=== PATIENT | female | born 1990 | race Two or more races ===

== ENCOUNTER 2017-05-02 23:40 | Emergency (ER) | payer BC ==
[2017-05-02 23:52] VITALS: TEMP 97.7; BMI 26.6
[2017-05-03] MEDS ORDERED: ALBUTEROL SO4 2.5/IPRATROPIUM 0.5 INH SOL 3 ML VIAL.NEB. NEB ONE ×3 (00:04→00:55)
--- NOTE | 2017-05-03 00:27 | PDOC ---
History of Present Illness - General Chief Complaint: Chest Pain Stated Complaint: S.O.B / CHEST PAIN Time Seen by Provider: 05/03/17 00:04 - History of Present Illness Initial Comments: 05/03/17 00:24 CHIEF COMPLAINT: chest tightness, SOB HISTORY OF PRESENT ILLNESS: 26 yo F presents to ED with shortness of breath and chest tightness since this evening. Patient states that she was eating when she the symptoms suddenly started. She reports congestion and runny nose since this evening. She denies any fever, chills, vomiting, diarrhea. She denies any recent travel, prolonged periods of sitting, or any hormonal therapy. She reports this has happened three times before and just recently saw her doctor at [facility] and had a "pulmonary function test done last week and I was waiting for the results." PAST MEDICAL HISTORY: Denies past medical history FAMILY HISTORY: Denies SOCIAL HISTORY: Denies tobacco, alcohol, illicit drug use. SURGICAL HISTORY: Denies ALLERGIES: amoxicillin REVIEW OF SYSTEMS General/Constitutional: Denies fever or chills. Denies weakness. HEENT: Denies change in vision. Denies ear pain or discharge. Denies sore throat. Cardiovascular: chest tightness, shortness of breath Respiratory: Denies cough, wheezing, or hemoptysis. Gastrointestinal: Denies nausea, vomiting, diarrhea or constipation. Denies rectal bleeding. Genitourinary: Denies dysuria, frequency, or change in urination. Musculoskeletal: Denies joint or muscle swelling or pain. Denies neck or back pain. Skin and breasts: Denies rash or easy bruising. Neurologic: Denies headache, vertigo, loss of consciousness, or loss of sensation. PHYSICAL EXAM General Appearance: Well-appearing, appropriately dressed. No apparent distress. HEENT: EOMI, PERRLA. No photophobia, scleral icterus. Neck: Supple. Trachea midline. No tenderness, rigidity, carotid bruit, stridor , lymphadenopathy, or thyromegaly. Respiratory/Chest: Wheezing to LLL. No shortness of breath, chest tenderness, respiratory distress, accessory muscle use. No crackles, rales, rhonchi, stridor , wheezing, dullness Cardiovascular: RRR. S1, S2. Vascular Pulses: Dorsalis-Pedis (R): 2+, Dorsalis-Pedis (L): 2+ Gastrointestinal/Abdominal: Normal bowel sounds. Abdomen soft, non-distended. No tenderness or rebound tenderness. No organomegaly, pulsatile mass, guarding , hernia, hepatomegaly, splenomegaly. Musculoskeletal/Extremities: Normal inspection. FROM of all extremities, normal capillary refill. Pelvis Stable. No CVA tenderness. No tenderness to extremities, pedal edema, swelling, erythema or deformity. Integumentary: Appropriate color, dry, warm. 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 Fully oriented, alert. Appropriate mood/affect. Motor strength 5/5. No appreciable EOM palsy, facial droop or sensory deficit. Past History - Past Medical History Allergies/Adverse Reactions: Allergies Allergy/AdvReac Type Severity Reaction Status Date / Time amoxicillin Allergy Rash Verified 04/20/16 19:32 Home Medications: Ambulatory Orders Albuterol Sulfate Inhaler - [Ventolin HFA Inhaler -] 1 - 2 inh PO Q4H PRN #1 inhaler 05/03/17 COPD: No - Surgical History Abdominal Surgery: Yes - Immunization History Immunization Up to Date: Yes - Suicide/Smoking/Psychosocial Hx Smoking History: Never smoked Have you smoked in the past 12 months: No Information on smoking cessation initiated: No Hx Alcohol Use: No Drug/Substance Use Hx: No Substance Use Type: None *Physical Exam - Vital Signs Last Vital Signs Temp Pulse Resp BP Pulse Ox 97.7 F 96 H 18 121/78 100 05/02/17 23:50 05/02/17 23:50 05/02/17 23:50 05/02/17 23:50 05/02/17 23:50 ED Treatment Course - RADIOLOGY Radiology Studies Ordered: Category Date Time Status CHEST PA & LAT [RAD] Stat Radiology 05/03/17 00:18 Ordered - Medications Given in the ED: ED Medications Discontinued Medications Generic Name Dose Route Start Last Admin Trade Name Freq PRN Reason Stop Dose Admin Albuterol/Ipratropium 1 amp 05/03/17 00:04 05/03/17 00:09 Duoneb - NEB 05/03/17 00:05 1 amp ONCE ONE Administration Medical Decision Making - Medical Decision Making 05/03/17 00:55 26 yo F presents to ED with shortness of breath and chest tightness since this evening. -duoneb -ekg, cxr *DC/Admit/Observation/Transfer Diagnosis at time of Disposition: Asthma attack - Discharge Dispostion Disposition: HOME Condition at time of disposition: Stable Admit: No - Prescriptions Prescriptions: Albuterol Sulfate Inhaler - [Ventolin HFA Inhaler -] 1 - 2 inh PO Q4H PRN #1 inhaler PRN Reason: Short Of Breath/Wheezing - Referrals - Patient Instructions Printed Discharge Instructions: DI for Asthma -- Adult Additional Instructions: Please use medications as prescribed. Follow up with your primary care doctor by the end of next week. If you develop any fever, chills, vomiting, diarrhea, or any new or worsening symptoms, please return to the ER. - Post Discharge Activity
--- NOTE | 2017-05-03 00:52 | PDOC ---
*Physical Exam - Vital Signs Last Vital Signs Temp Pulse Resp BP Pulse Ox 97.7 F 96 H 18 121/78 100 05/02/17 23:50 05/02/17 23:50 05/02/17 23:50 05/02/17 23:50 05/02/17 23:50 ED Treatment Course - ADDITIONAL ORDERS Additional order review: Laboratory Results 05/03/17 00:27 Urine HCG, Qual Negative - Medications Given in the ED: ED Medications Discontinued Medications Generic Name Dose Route Start Last Admin Trade Name Freq PRN Reason Stop Dose Admin Albuterol/Ipratropium 1 amp 05/03/17 00:04 05/03/17 00:09 Duoneb - NEB 05/03/17 00:05 1 amp ONCE ONE Administration Medical Decision Making - Medical Decision Making 05/03/17 00:52 agree with care from BEBE Martines *DC/Admit/Observation/Transfer Diagnosis at time of Disposition: Asthma attack - Discharge Dispostion Disposition: HOME Condition at time of disposition: Stable - Prescriptions Prescriptions: Albuterol Sulfate Inhaler - [Ventolin HFA Inhaler -] 1 - 2 inh PO Q4H PRN #1 inhaler PRN Reason: Short Of Breath/Wheezing - Referrals - Patient Instructions Printed Discharge Instructions: DI for Asthma -- Adult Additional Instructions: Please use medications as prescribed. Follow up with your primary care doctor by the end of next week. If you develop any fever, chills, vomiting, diarrhea, or any new or worsening symptoms, please return to the ER. - Post Discharge Activity
[2017-05-03] MEDS ORDERED: DEXAMETHASONE LIQUID 0.5 MG/5 ML 240 ML BULK BOTTLE PO ONE (02:52)
[2017-05-03] MEDS ORDERED: DEXAMETHASONE SOD PHOSPHATE 10 MG/1 ML VIAL ONE (03:07)
[2017-05-03 03:09] VITALS: BP 127/73; PULSE 75
--- NOTE | 2017-05-03 16:30 | EKG ---
Test Reason : Blood Pressure : / mmHG Vent. Rate : 085 BPM Atrial Rate : 085 BPM P-R Int : 166 ms QRS Dur : 076 ms QT Int : 358 ms P-R-T Axes : 083 072 058 degrees QTc Int : 426 ms NORMAL SINUS RHYTHM WITH SINUS ARRHYTHMIA NORMAL ECG WHEN COMPARED WITH ECG OF 06-DEC-2008 22:59, NO SIGNIFICANT CHANGE WAS FOUND Confirmed by HILTON DE LUNA MD ([id number]) on 05/03/2017 4:30:14 PM Referred By: Confirmed By:HILTON DE LUNA MD
== END 2017-05-03 03:08 | disposition home or self-care (01) ==
LOC: JER 23:40
PROC: 3E0F7GC Introduction of Other Therapeutic Substance into Respiratory Tract, Via Natural or Artificial Opening (ICD-10-PCS; principal; 2017-05-02)
PROC: 3E0F7GC Introduction of Other Therapeutic Substance into Respiratory Tract, Via Natural or Artificial Opening (ICD-10-PCS; 2017-05-02)
DX: J45.901 Unspecified asthma with (acute) exacerbation (principal)
CPT/HCPCS: 71020-TC; 84703; 87804; 93005; 93010; 99282-25

== ENCOUNTER 2018-01-30 14:32 | Emergency (ER) | payer BC ==
[2018-01-30 14:49] VITALS: BP 114/74; PULSE 81; TEMP 98.5; BMI 28.8
[2018-01-30] MEDS ORDERED: IBUPROFEN 400 MG TABLET (FP) PO ONE ×2 (14:57→14:59)
[2018-01-30] MEDS ORDERED: PSEUDOEPHEDRINE HCL 30 MG TABLET ONE (14:58)
[2018-01-30] MEDS ORDERED: LORATADINE 10 MG TABLET ONE (14:58)
[2018-01-30] MEDS ORDERED: LORATADINE 10 MG TABLET PO ONE (14:58)
[2018-01-30] MEDS ORDERED: PSEUDOEPHEDRINE HCL 30 MG TABLET PO SCH (15:00)
--- NOTE | 2018-01-30 15:03 | PDOC ---
History of Present Illness - History of Present Illness Initial Comments: Patient is a 27 year old female with a PMHx of Hirschsprung's disease who presents to the ED with a right-sided headache since this morning. Patient states that last week she went to urgent care for her right ear pain and was told that it was inflamed and was given a course of antibiotics. She states that this morning she woke up with a right-sided pressure-like headache which radiated to her right ear and neck. She also notes some clear discharge from her right nostril this morning after taking the antibiotic. She states that she has about 5 days left of her antibiotic course and takes 2/day 12 hours apart. She reports that on Sunday when she began her antibiotics she vomited 1x. Patient denies h/o migraines. Social Hx: occasional EtOH use. Allergies: amoxicillin <Lula Rubio - Last Filed: 01/30/18 15:14> - History of Present Illness Initial Comments: 01/30/18 15:25 Physical exam: Alert and oriented well-developed well-nourished no acute distress cheerful and cooperative Afebrile, vital signs normal PERRLA 4 mm, fundi benign with sharp disc margins and good central venous pulsations. No hemorrhages or exudates. EOMs full without diplopia. Visual askew intact to confrontation. Nasal congestion is present on the right, with watery nasal discharge. Ears and throat are clear without any suggestion of erythema or other sign of infection Neck supple without bruit mass or nodes Chest clear CV regular without murmur rub or gallop Abdomen benign Neurological intact Skin clear, no rash, adequate turgor and wet mucous membranes Impression: Sinus congestion, 7 day course of antibiotics complete, no purulent discharge, fever, or other sign of ongoing infection. Residual congestion is most likely this was before the headache Plan: Antihistamine and decongestant, Motrin, rest, and recheck if symptoms persist or worsen. Fully ambulatory and in no distress upon discharge. <Kareem Ramirez - Last Filed: 01/30/18 15:27> - General Chief Complaint: Headache Stated Complaint: HEADACHE Time Seen by Provider: 01/30/18 14:36 Past History <Lula Rubio - Last Filed: 01/30/18 15:14> - Past Medical History COPD: No GI Disorders: Yes (HISPUNG DISEASE) - Surgical History Abdominal Surgery: Yes ( CHILD) - Immunization History Immunization Up to Date: Yes - Suicide/Smoking/Psychosocial Hx Smoking History: Never smoked Have you smoked in the past 12 months: No Information on smoking cessation initiated: No Hx Alcohol Use: Yes (OCCASSIONAL) Drug/Substance Use Hx: No Substance Use Type: Alcohol <Kareem Ramirez - Last Filed: 01/30/18 15:27> - Past Medical History Allergies/Adverse Reactions: Allergies Allergy/AdvReac Type Severity Reaction Status Date / Time amoxicillin Allergy Rash Verified 01/30/18 14:34 Home Medications: Ambulatory Orders Fexofenadine/Pseudoephedrine [Libby-D 24 Hour Tablet] 1 tab PO DAILY #15 tab.er.24h 01/30/18 Ibuprofen 600 mg PO TID PRN #20 tablet 01/30/18 Review of Systems - Review of Systems Comments:: CONSTITUTIONAL: Absent: fever, chills, diaphoresis, generalized weakness, malaise, loss of appetite HEENT: Present: rhinorrhea, nasal congestion, right ear pain Absent:throat pain, throat swelling, difficulty swallowing, mouth swelling, eye pain, visual changes CARDIOVASCULAR: Absent: chest pain, syncope, palpitations, irregular heart rate, lightheadedness , peripheral edema RESPIRATORY: Absent: cough, shortness of breath, dyspnea with exertion, orthopnea, wheezing, stridor, hemoptysis GASTROINTESTINAL: Absent: abdominal pain, abdominal distension, nausea, vomiting, diarrhea, constipation, melena, hematochezia GENITOURINARY: Absent: dysuria, frequency, urgency, hesitancy, hematuria, flank pain, genital pain MUSCULOSKELETAL: Absent: myalgia, arthralgia, joint swelling SKIN: Absent: rash, itching, pallor HEMATOLOGIC/IMMUNOLOGIC: Absent: easy bleeding, easy bruising, lymphadenopathy, frequent infections ENDOCRINE: Absent: unexplained weight gain, unexplained weight loss, heat intolerance, cold intolerance NEUROLOGIC: Present: right sided headache Absent: focal weakness or paresthesias, dizziness, unsteady gait, seizure, mental status changes, bladder or bowel incontinence PSYCHIATRIC: Absent: anxiety, depression, suicidal or homicidal ideation, hallucinations. <Lula Rubio - Last Filed: 01/30/18 15:14> *Physical Exam - Vital Signs Last Vital Signs Temp Pulse Resp BP Pulse Ox 98.5 F 81 18 114/74 98 01/30/18 14:34 01/30/18 14:34 01/30/18 14:34 01/30/18 14:34 01/30/18 14:34 <Lula Rubio - Last Filed: 01/30/18 15:14> - Vital Signs Last Vital Signs Temp Pulse Resp BP Pulse Ox 98.5 F 81 18 114/74 98 01/30/18 14:34 01/30/18 14:34 01/30/18 14:34 01/30/18 14:34 01/30/18 14:34 <Kareem Ramirez - Last Filed: 01/30/18 15:27> ED Treatment Course - Medications Given in the ED: ED Medications Discontinued Medications Generic Name Dose Route Start Last Admin Trade Name Freq PRN Reason Stop Dose Admin Ibuprofen 400 mg 01/30/18 14:59 01/30/18 15:00 Motrin - PO 01/30/18 15:00 400 mg ONCE ONE Administration Loratadine 10 mg 01/30/18 14:58 01/30/18 15:00 Claritin - PO 01/30/18 14:59 10 mg ONCE ONE Administration <Lula Rubio - Last Filed: 01/30/18 15:14> *DC/Admit/Observation/Transfer - Attestations Scribe Attestion: 01/30/18 15:18 Documentation prepared by Lula Rubio, acting as medical imaging specialist for Kareem Moctezuma MD. <Lula Rubio - Last Filed: 01/30/18 15:14> - Discharge Dispostion Decision to Admit order: No <Kareem Ramirez - Last Filed: 01/30/18 15:27> Diagnosis at time of Disposition: Viral upper respiratory illness - Discharge Dispostion Disposition: HOME Condition at time of disposition: Stable - Prescriptions Prescriptions: Fexofenadine/Pseudoephedrine [Libby-D 24 Hour Tablet] 1 tab PO DAILY #15 tab.er.24h Ibuprofen 600 mg PO TID PRN #20 tablet PRN Reason: Headache - Patient Instructions Printed Discharge Instructions: Sinus Headache Additional Instructions: Rest, fluids, medication as directed. Avoid excessive visual stimulation such as bright lights or television/computer/phone screens. Return to ER if symptoms worsen, otherwise recheck PCP. 5 days. Discontinue antibiotics. - Post Discharge Activity Forms/Work/School Notes: Back to Work
== END 2018-01-30 15:19 | disposition home or self-care (01) ==
LOC: FER 14:32
DX: J06.9 Acute upper respiratory infection, unspecified (principal)
CPT/HCPCS: 99281-25

== ENCOUNTER 2018-08-14 08:49 | Emergency (ER) | payer BC, OTHER ==
[2018-08-14 09:09] VITALS: BP 118/75; PULSE 66; TEMP 98.3; BMI 27.4
[2018-08-14] MEDS ORDERED: ONDANSETRON *ODT* 4 MG TABLET SL ONE (09:11)
--- NOTE | 2018-08-14 09:11 | PDOC ---
History of Present Illness - General Chief Complaint: Headache Stated Complaint: varghese lara dneck pain Time Seen by Provider: 08/14/18 08:56 - History of Present Illness Initial Comments: 08/14/18 09:13 Chief complaint: Headache History of present illness: Patient complains of headache since 6 AM this morning. Took 1 Excedrin without relief. The headache is bilateral, radiating from both sternomastoid muscles in the neck. There is photophobia, nausea, and there was one episode of vomiting. Review of systems: Denies fever/chills, URI symptoms, nasal congestion, sore throat, cough, chest pain, shortness of breath, abdominal pain, visual or focal neurologic symptoms, unsteadiness of gait. Denies urinary tract symptoms, vaginal bleeding or discharge. LMP approximately 4 weeks ago, due for menses now. Remainder of systems reviewed and negative Past medical history: Hirschsprung's disease as an infant, surgery at that time , no further problems. Denies frequent headaches or migraines, although occasional headache is experienced in usually treated with [id number] analgesics. 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 Denies drugs or alcohol or tobacco. Fully ambulatory, no disabilities. Denies any awareness of any unusual stress or anxiety or depression. Family history: Reviewed and noncontributory including early coronary artery disease, metabolic disease including diabetes, neurological diseases, and cancer Physical exam: Alert and oriented well-developed well-nourished mild distress due to headache. However relatively cheerful and cooperative Afebrile, vital signs normal Head atraumatic. PERRLA 3 mm, fundi benign with sharp disc margins and good central venous pulsations, ENT clear Neck supple without bruit mass or nodes. No point tenderness or deformity of the cervical spine Chest clear with full breath sounds bilaterally CV regular without murmur rub or gallop pulses full and symmetric no JVD or edema no bruits Abdomen nondistended. Bowel sounds normal. Soft without mass tenderness organomegaly Extremities no CCE Skin clear, no rash, adequate turgor and wet mucous membranes Neurological C2 to 12 intact. Strength full and symmetric. No focal sensory or motor deficits. Cerebellar function intact. Gait stable and unimpaired Impression: Tension-type headache, no clear etiology other than possibly related to impending menses. No sign of acute neurological disease Plan: Antiemetic and analgesic. Observation, further evaluation and treatment depending on response to therapy. Past History - Past Medical History Allergies/Adverse Reactions: Allergies Allergy/AdvReac Type Severity Reaction Status Date / Time amoxicillin Allergy Rash Verified 08/14/18 08:51 Home Medications: Ambulatory Orders Diclofenac Potassium 50 mg PO TID PRN #20 tablet 08/14/18 COPD: No GI Disorders: Yes (HISPUNG DISEASE) - Surgical History Abdominal Surgery: Yes ( CHILD,colostomy and closure) - Immunization History Immunization Up to Date: Yes - Suicide/Smoking/Psychosocial Hx Smoking History: Never smoked Have you smoked in the past 12 months: No Hx Alcohol Use: No Drug/Substance Use Hx: No Substance Use Type: Alcohol *Physical Exam - Vital Signs Last Vital Signs Temp Pulse Resp BP Pulse Ox 98.3 F 66 18 118/75 98 08/14/18 08:50 08/14/18 08:50 08/14/18 08:50 08/14/18 08:50 08/14/18 08:50 Medical Decision Making - Medical Decision Making 08/14/18 10:39 Headache is almost completely resolved. No photophobia, nausea, or vomiting. Instructed to rest for the remainder of the day, return to ER if symptoms worse , otherwise follow-up with primary physician. Continue analgesics as needed. *DC/Admit/Observation/Transfer Diagnosis at time of Disposition: Headache Qualifiers: Headache type: tension-type Headache chronicity pattern: acute headache - Discharge Dispostion Disposition: HOME Condition at time of disposition: Improved Decision to Admit order: No - Referrals - Patient Instructions Printed Discharge Instructions: DI for Headache Additional Instructions: Rest, medication as needed. If symptoms worse return to emergency room for further evaluation. Otherwise follow-up primary physician. - Post Discharge Activity Forms/Work/School Notes: Back to Work
[2018-08-14] MEDS ORDERED: IBUPROFEN 400 MG TABLET (FP) PO ONE ×2 (09:12→09:18)
[2018-08-14] MEDS ORDERED: ONDANSETRON *ODT* 4 MG TABLET ONE (09:18)
[2018-08-14] MEDS ORDERED: KETOROLAC TROMETHAMINE 60 MG/2 ML VIAL IM ONE (09:30)
[2018-08-14] MEDS ORDERED: KETOROLAC TROMETHAMINE 60 MG/2 ML VIAL ONE (09:36)
== END 2018-08-14 10:48 | disposition home or self-care (01) ==
LOC: FER 08:49
PROC: 3E0333Z Introduction of Anti-inflammatory into Peripheral Vein, Percutaneous Approach (ICD-10-PCS; principal; 2018-08-14)
DX: G44.209 Tension-type headache, unspecified, not intractable (principal); Q43.1 Hirschsprung's disease
CPT/HCPCS: 96372; 99282-25; Q0162

== ENCOUNTER 2019-05-16 19:22 | Emergency (ER) | payer OTHER ==
[2019-05-16 19:29] VITALS: BP 119/66; PULSE 81; TEMP 97.9; BMI 27.4
[2019-05-16] MEDS ORDERED: LIDOCAINE VISCOUS 2% ORAL/TOP 20 ML UNIT-DOSE CUP MM ONE (19:54)
[2019-05-16] MEDS ORDERED: FAMOTIDINE 20 MG TABLET PO ONE (19:54)
[2019-05-16] MEDS ORDERED: MAG HYDROX/AL HYDROX/SIMETH 30 ML UNIT-DOSE CUP PO ONE (19:54)
[2019-05-16] MEDS ORDERED: FAMOTIDINE 20 MG TABLET ONE (19:56)
[2019-05-16] MEDS ORDERED: MAG HYDROX/AL HYDROX/SIMETH 30 ML UNIT-DOSE CUP ONE (19:56)
[2019-05-16] MEDS ORDERED: LIDOCAINE VISCOUS 2% ORAL/TOP 20 ML UNIT-DOSE CUP ONE (19:57)
--- NOTE | 2019-05-16 20:55 | PDOC ---
Documentation entered by Marissa Andrew SCRIBE, acting as scribe for Maryan Chapa MD. Maryan Chapa MD: This documentation has been prepared by the Kamran mayo Adrianna, SCRIBE, under my direction and personally reviewed by me in its entirety. I confirm that the documentation accurately reflects all work, treatment, procedures, and medical decision making performed by me. History of Present Illness - General Chief Complaint: Pain, Acute Stated Complaint: N/V/ABD PAIN - History of Present Illness Initial Comments: 28 Y F, PMH of Hirschsprung disease, presents with constipation, nausea, and abdominal pain for 2 weeks. She notes she has been constipated for the past 2 weeks. Patient took OTC laxative and Pepto-bismol, which induced black diarrhea. LBM was 2 days ago, but has been able to pass gas and burp. She endorses associated nausea, and burning epigastric pain. She notes her abdomen feels bloated and hard. Patient had one episode of spitting up this morning, but has tolerated food since then. Her LMP was abnormal, 3 weeks late, and she notes she is due this week. Denies any fever or chills. Allergies: Amoxicillin Surgical History: Colostomy bag as a child Social History: Social EtOH use. Denies tobacco or illicit drug use Past History - Past Medical History Allergies/Adverse Reactions: Allergies Allergy/AdvReac Type Severity Reaction Status Date / Time amoxicillin Allergy Rash Verified 08/14/18 08:51 Home Medications: Ambulatory Orders NK [No Known Home Medication] 05/16/19 COPD: No GI Disorders: Yes (HIRSCHPRUNG DISEASE) - Surgical History Abdominal Surgery: Yes ( CHILD,colostomy and closure) - Immunization History Immunization Up to Date: Yes - Psycho Social/Smoking Cessation Hx Smoking History: Never smoked Have you smoked in the past 12 months: No Hx Alcohol Use: No Drug/Substance Use Hx: No Substance Use Type: Alcohol Review of Systems - Review of Systems Comments:: GENERAL/CONSTITUTIONAL: No fever or chills. No weakness. HEAD, EYES, EARS, NOSE AND THROAT: No change in vision. No ear pain or discharge. No sore throat. CARDIOVASCULAR: No chest pain or shortness of breath. RESPIRATORY: No cough, wheezing, or hemoptysis. GASTROINTESTINAL: +Constipation. +Diarrhea after taking laxative and pepto. + Nausea. +1 episode of spitting up. +Burning epigastric pain. GENITOURINARY: +Abnormal menstrual cycle. No dysuria, frequency, or change in urination. MUSCULOSKELETAL: No joint or muscle swelling or pain. No neck or back pain. SKIN: No rash NEUROLOGIC: No headache, vertigo, loss of consciousness, or change in strength/ sensation. ENDOCRINE: No increased thirst. No abnormal weight change. HEMATOLOGIC/LYMPHATIC: No anemia, easy bleeding, or history of blood clots. ALLERGIC/IMMUNOLOGIC: No hives or skin allergy. *Physical Exam - Vital Signs Last Vital Signs Temp Pulse Resp BP Pulse Ox 97.9 F 81 16 119/66 100 05/16/19 19:26 05/16/19 19:26 05/16/19 19:26 05/16/19 19:26 05/16/19 19:26 - Physical Exam 05/16/19 20:50 awake alert lungs clear bilat heart rrr no mrg abd soft nt nd old surgical scar evident midline horizontal above umbilicas. colostomy scar. no pal phernia. no rebound no guarding. skin warm and dry. retal no stool in vault, small fissure noted 12oclock postion. 05/16/19 20:53 ED Treatment Course - ADDITIONAL ORDERS Additional order review: Laboratory Results 05/16/19 05/16/19 20:00 20:00 Urine HCG, Qual Negative Stool Occult Blood Negative - Medications Given in the ED: ED Medications Discontinued Medications Generic Name Dose Route Start Last Admin Trade Name Freq PRN Reason Stop Dose Admin Al Hydroxide/Mg Hydroxide 30 ml 05/16/19 19:54 05/16/19 19:57 Mylanta Oral Suspension - PO 05/16/19 19:55 30 ml ONCE ONE Administration Famotidine 20 mg 05/16/19 19:54 05/16/19 19:57 Pepcid - PO 05/16/19 19:55 20 mg ONCE ONE Administration Lidocaine HCl 10 ml 05/16/19 19:54 05/16/19 19:58 Xylocaine 2% Viscous Oral - MM 05/16/19 19:55 10 ml ONCE ONE Administration Medical Decision Making - Medical Decision Making 05/16/19 20:51 28 yo F with h/o prior hirschrpungs s/p resection , colostomy and reversal as a child, hrere c/o constipation. pt stats now having loose stool after taking laxitive. black stool following a pepto. does have a GI whom she saw one year ago. no f/c c/o bloating feeling. no ther complaitns. lpassing mechelle, last bm 2 days ago. no f/c burning epigastri pain radiating to chest worse at night. abd exam benign nontender. differential gerd, contstipation. no current sxs of obstruction abd exam nontender. will given gerd medication, recommend daily miralax, stool occult. pt to follow up with GI. Discharge - Discharge Information Problems reviewed: Yes Clinical Impression/Diagnosis: Constipation, GERD (gastroesophageal reflux disease) Condition: Stable Disposition: HOME - Admission No - Follow up/Referral - Patient Discharge Instructions Patient Printed Discharge Instructions: Heartburn -- Overview, Constipation Additional Instructions: you shoudl follow up with a special programs director. call DR Hernandes to schedule appointemtn. you should also take daily miralax one packet. mix with water take daily to help wtih constipation. drink plenty of fluids. for your reflux you can take pepcid daily. these medications are available over the counter. return for any persistant vomiting or any concerns. - Post Discharge Activity
== END 2019-05-16 20:59 | disposition home or self-care (01) ==
LOC: FER 19:22
DX: K59.00 Constipation, unspecified (principal); K21.9 Gastro-esophageal reflux disease without esophagitis; Q43.1 Hirschsprung's disease; Z88.1 Allergy status to other antibiotic agents
CPT/HCPCS: 36415; 82272; 84703; 99282-25

== ENCOUNTER 2019-06-24 00:53 | Emergency (ER) | payer OTHER ==
--- NOTE | 2019-06-24 03:11 | PDOC ---
*Physical Exam - Vital Signs Last Vital Signs Temp Pulse Resp BP Pulse Ox 98.0 F 82 20 117/60 99 06/24/19 01:00 06/24/19 01:00 06/24/19 01:00 06/24/19 01:00 06/24/19 01:00 Medical Decision Making - Medical Decision Making 06/24/19 03:11 Patient seen by the advanced practice provider under my supervision. Ancillary testing reviewed as necessary. I agree with plan as outlined by the advanced practice provider. Discharge - Discharge Information Problems reviewed: Yes Clinical Impression/Diagnosis: Allergic reaction to food Qualifiers: Encounter type: initial encounter Qualified Code(s): T78.1XXA - Other adverse food reactions, not elsewhere classified, initial encounter Condition: Fair Disposition: HOME - Additional Discharge Information Prescriptions: EPINEPHrine (EPI-PEN 0.3MG) [Epipen 0.3MG -] 0.3 mg IM ASDIR #2 pens Methylprednisolone [Medrol Dose Parth] 4 mg PO ASDIR #21 tablet - Follow up/Referral Referrals: Brennan Farooq MD [Primary Care Provider] - - Patient Discharge Instructions Patient Printed Discharge Instructions: DI for General Allergic Reactions Additional Instructions: Take Medrol Dosepak as prescribed. Use EpiPen for any worsening swelling of tongue respiratory distress or any worsening symptoms. It is important that you come to the emergency room if for any worsening symptoms you may continue Benadryl every 6-8 hours as needed - Post Discharge Activity Work/Back to School Note: Back to Work
[2019-06-24] MEDS ORDERED: methylPREDNISolone NA SUCC 125 MG/2 ML VIAL IVPB ONE (03:22)
--- NOTE | 2019-06-24 03:22 | PDOC ---
History of Present Illness - General Chief Complaint: Rash Stated Complaint: ALLERGIC RX Time Seen by Provider: 06/24/19 03:05 History Source: Patient - History of Present Illness Initial Comments: 06/24/19 04: 29-year-old female reports eating strawberries and banana broke out in hives and itchy rash. Patient was seen at [facility] last night and was given prednisone and Benadryl. Patient reports feeling worsening itching and additional hives to body. Patient reports slight itchiness to throat no swelling no respiratory distress. Patient has a past medical history asthma Past History - Past Medical History Allergies/Adverse Reactions: Allergies Allergy/AdvReac Type Severity Reaction Status Date / Time amoxicillin Allergy Rash Verified 06/24/19 02:23 Home Medications: Ambulatory Orders EPINEPHrine (EPI-PEN 0.3MG) [Epipen 0.3MG -] 0.3 mg IM ASDIR #2 pens 06/24/19 Methylprednisolone [Medrol Dose Parth] 4 mg PO ASDIR #21 tablet 06/24/19 COPD: No GI Disorders: Yes (HIRSCHPRUNG DISEASE) - Surgical History Abdominal Surgery: Yes ( CHILD,colostomy and closure) - Immunization History Immunization Up to Date: Yes - Psycho Social/Smoking Cessation Hx Smoking History: Never smoked Have you smoked in the past 12 months: No Information on smoking cessation initiated: No Hx Alcohol Use: No Drug/Substance Use Hx: No Substance Use Type: Alcohol *Physical Exam - Vital Signs Last Vital Signs Temp Pulse Resp BP Pulse Ox 98.0 F 82 20 117/60 99 06/24/19 01:00 06/24/19 01:00 06/24/19 01:00 06/24/19 01:00 06/24/19 01:00 - Physical Exam General Appearance: Yes: Appropriately Dressed HEENT: positive: Pharyngeal Erythema (mild erythema), Other (uvula midline) Respiratory/Chest: positive: Lungs Clear, Normal Breath Sounds Integumentary: positive: Normal Color, Dry, Warm, Hives (wheals thorat trunk extremities and groin) Neurologic: positive: Fully Oriented, Alert ED Progress Note - Progress Note Progress Note: Allergic reaction P : Solumedrol benadryl Medical Decision Making - Medical Decision Making 06/24/19 04:41 hives disappearing. will give a epi pen. strict return precautions are reviewed with patient. Discharge - Discharge Information Problems reviewed: Yes Clinical Impression/Diagnosis: Allergic reaction to food Qualifiers: Encounter type: initial encounter Qualified Code(s): T78.1XXA - Other adverse food reactions, not elsewhere classified, initial encounter Condition: Fair Disposition: HOME - Additional Discharge Information Prescriptions: EPINEPHrine (EPI-PEN 0.3MG) [Epipen 0.3MG -] 0.3 mg IM ASDIR #2 pens Methylprednisolone [Medrol Dose Parth] 4 mg PO ASDIR #21 tablet - Follow up/Referral Referrals: Brennan Farooq MD [Primary Care Provider] - - Patient Discharge Instructions Patient Printed Discharge Instructions: DI for General Allergic Reactions Additional Instructions: Take Medrol Dosepak as prescribed. Use EpiPen for any worsening swelling of tongue respiratory distress or any worsening symptoms. It is important that you come to the emergency room if for any worsening symptoms you may continue Benadryl every 6-8 hours as needed - Post Discharge Activity Work/Back to School Note: Back to Work
[2019-06-24] MEDS ORDERED: methylPREDNISolone NA SUCC 125 MG/2 ML VIAL ONE (03:26)
[2019-06-24 03:36] VITALS: BP 117/60; PULSE 82; TEMP 98; BMI 25.7
[2019-06-24] MEDS ORDERED: hydrOXYzine PAMOATE 50 MG CAPSULE (FP) PO ONE (04:07)
[2019-06-24] MEDS ORDERED: hydrOXYzine PAMOATE 50 MG CAPSULE (FP) ONE (04:32)
== END 2019-06-24 04:59 | disposition home or self-care (01) ==
LOC: JER 00:53
PROC: 3E033GC Introduction of Other Therapeutic Substance into Peripheral Vein, Percutaneous Approach (ICD-10-PCS; principal; 2019-06-24)
PROC: 3E0333Z Introduction of Anti-inflammatory into Peripheral Vein, Percutaneous Approach (ICD-10-PCS; 2019-06-24)
DX: T78.1XXA Other adverse food reactions, not elsewhere classified, initial encounter (principal); L50.0 Allergic urticaria; X58.XXXA Exposure to other specified factors, initial encounter; Z88.0 Allergy status to penicillin
CPT/HCPCS: 99284-25

== ENCOUNTER → 2021-08-30 | Day surgery (SDC) | payer OTHER | END | disposition home or self-care (01) | LOC: JRADIR 09:52 | PROVIDERS: ATTEND Internal Medicine Endocrinology, Diabetes & Metabolism | PROC: 0G9H3ZX Drainage of Right Thyroid Gland Lobe, Percutaneous Approach, Diagnostic (ICD-10-PCS; principal; 2021-08-30) | DX: E04.1 Nontoxic single thyroid nodule (principal) | CPT/HCPCS: 10005; 76942; 88173; 88305-TC ==

== ENCOUNTER 2022-09-27 18:49 | Emergency (ER) | payer OTHER ==
[2022-09-27 19:00] VITALS: BP 121/77; PULSE 88; RESP 20; TEMP 97.8; BMI 31.7
[2022-09-27 19:48] LABS: EPI CELLS 11 /uL (0-25.1); HYALINE CASTS 0 /uL (0-3.1); URINE APPEARANCE CLEAR; URINE BACTERIA 11 /uL (0-1359); URINE BILIRUBIN NEGATIVE (NEGATIVE); URINE COLOR YELLOW; URINE GLUCOSE (UA) NEGATIVE (NEGATIVE); URINE KETONE TRACE (NEGATIVE); URINE LEUK ESTERASE TRACE (NEGATIVE); URINE NITRITE NEGATIVE (NEGATIVE); URINE PROTEIN NEGATIVE (NEGATIVE); URINE RBC 23 /uL (0-23.9); URINE WBC 55 /uL (0-25.8)
[2022-09-27] MEDS ORDERED: SODIUM CHLORIDE 0.9% 500 ML INFUS.BAG IV ONE (19:51)
[2022-09-27] MEDS ORDERED: ACETAMINOPHEN 1000 MG/100 ML BAG IVPB ONE (19:52)
[2022-09-27] MEDS ORDERED: ACETAMINOPHEN INJECTION 100 ML IVPB ONE (19:52)
[2022-09-27 20:10] LABS: BASO % 0.7 % (0-2.0); EOS % 4.2 % (0-4.5); HEMATOCRIT 40.1 % (32.4-45.2); HEMOGLOBIN 13.3 GM/dL (10.7-15.3); LYMPH % 19.4 % (8-40); MCH 28.2 pg (25.7-33.7); MCHC 33.2 g/dl (32.0-36.0); MEAN CELL VOLUME 84.9 fl (80-96); MEAN PLT VOLUME 8.3 fl (7.5-11.1); MONO % 6.6 % (3.8-10.2); NEUT % 69.1 % (42.8-82.8); PLATELET COUNT 307 10^3/uL (134-434); RBC 4.73 M/mm3 (3.60-5.2); RDW 14.3 % (11.6-15.6); WHITE BLOOD COUNT 10.9 K/mm3 (4.0-10.0)
[2022-09-27 20:26] LABS: POTASSIUM 4.6 mmol/L (3.5-5.1)
[2022-09-27 20:28] LABS: BLOOD UREA NITROGEN 11.7 mg/dL (7-18); CALCIUM 9.1 mg/dL (8.5-10.1)
[2022-09-27 20:29] LABS: ALBUMIN 3.8 g/dl (3.4-5.0)
[2022-09-27 20:31] LABS: CREATININE 0.8 mg/dL (0.55-1.3)
[2022-09-27 20:33] LABS: BILIRUBIN,TOTAL 0.4 mg/dL (0.2-1); TOT PROT 7.5 g/dl (6.4-8.2)
[2022-09-27 20:40] LABS: HCG,QUALITATIVE URINE Negative
== END 2022-09-27 23:44 | disposition home or self-care (01) ==
LOC: JER 18:49
PROC: 3E033NZ Introduction of Analgesics, Hypnotics, Sedatives into Peripheral Vein, Percutaneous Approach (ICD-10-PCS; principal; 2022-09-27)
DX: R10.84 Generalized abdominal pain (principal); R14.0 Abdominal distension (gaseous)
CPT/HCPCS: 36415; 74021-TC-FY; 74177-TC; 76830-TC; 80053; 81003; 83690; 84703; 85025; 87086; 99285-25

== ENCOUNTER 2023-05-09 18:19 | Emergency (ER) | payer OTHER ==
[2023-05-09 18:28] VITALS: TEMP 97.8; BMI 30.9
[2023-05-09] MEDS ORDERED: FAMOTIDINE 20 MG/50 ML IVPB 20 MG/50 ML MG IVPB ONE ×2 (20:40→21:12)
[2023-05-09] MEDS ORDERED: ONDANSETRON 4 MG/2 ML VIAL IVPUSH ONE (20:40)
[2023-05-09] MEDS ORDERED: ACETAMINOPHEN 500 MG TABLET (FP) PO ONE (20:40)
[2023-05-09] MEDS ORDERED: ONDANSETRON 4 MG/2 ML VIAL ONE (21:12)
[2023-05-09] MEDS ORDERED: ACETAMINOPHEN 500 MG TABLET (FP) ONE (21:12)
[2023-05-09] MEDS ORDERED: SODIUM CHLORIDE 0.9% 500 ML INFUS.BAG IV ONE (21:13)
[2023-05-09 21:15] LABS: BASO % 1.1 % (0-2.0); EOS % 7.6 % (0-4.5); HEMATOCRIT 41.8 % (32.4-45.2); HEMOGLOBIN 13.6 GM/dL (10.7-15.3); LYMPH % 30.6 % (8-40); MCH 27.3 pg (25.7-33.7); MCHC 32.6 g/dl (32.0-36.0); MEAN CELL VOLUME 83.8 fl (80-96); MONO % 5.9 % (3.8-10.2); NEUT % 54.8 % (42.8-82.8); PLATELET COUNT 305 10^3/uL (134-434); RBC 4.99 M/mm3 (3.60-5.2); RDW 19.7 % (11.6-15.6); WHITE BLOOD COUNT 9.5 K/mm3 (4.0-10.0)
[2023-05-09 21:18] LABS: URINE APPEARANCE CLEAR; URINE BILIRUBIN NEGATIVE (NEGATIVE); URINE COLOR YELLOW; URINE GLUCOSE (UA) NEGATIVE (NEGATIVE); URINE KETONE NEGATIVE (NEGATIVE); URINE LEUK ESTERASE NEGATIVE (NEGATIVE); URINE NITRITE NEGATIVE (NEGATIVE); URINE PROTEIN NEGATIVE (NEGATIVE); URINE UROBILINOGEN 0.2 mg/dL (0.2-1.0)
[2023-05-09 21:21] LABS: HCG,QUALITATIVE URINE Negative
[2023-05-09 21:24] LABS: INR 1.06 (0.83-1.09); PROTHROMBIN TIME (PATIENT) 12.3 SEC (9.7-13.0)
[2023-05-09 21:26] LABS: ACTIVATED PTT 36.2 SECONDS (25.2-36.5)
[2023-05-09 21:40] LABS: POTASSIUM 4.1 mmol/L (3.5-5.1)
[2023-05-09 21:41] LABS: ALBUMIN 3.8 g/dl (3.4-5.0); CALCIUM 9.2 mg/dL (8.5-10.1)
[2023-05-09 21:42] LABS: BLOOD UREA NITROGEN 10.9 mg/dL (7-18)
[2023-05-09 21:45] LABS: CREATININE 0.7 mg/dL (0.55-1.3)
[2023-05-09 21:47] LABS: BILIRUBIN,TOTAL 0.5 mg/dL (0.2-1); TOT PROT 7.3 g/dl (6.4-8.2)
[2023-05-10 01:45] VITALS: BP 99/65; PULSE 70; RESP 18
[2023-05-10] MEDS ORDERED: MAG HYDROX/AL HYDROX/SIMETH 30 ML UNIT-DOSE CUP ONE (03:16)
[2023-05-10] MEDS ORDERED: MAG HYDROX/AL HYDROX/SIMETH 30 ML UNIT-DOSE CUP PO ONE (03:16)
== END 2023-05-10 03:17 | disposition home or self-care (01) ==
LOC: JER 18:19
PROC: 3E033GC Introduction of Other Therapeutic Substance into Peripheral Vein, Percutaneous Approach (ICD-10-PCS; principal; 2023-05-09)
PROC: 3E033GC Introduction of Other Therapeutic Substance into Peripheral Vein, Percutaneous Approach (ICD-10-PCS; 2023-05-09)
DX: R10.13 Epigastric pain (principal); R11.0 Nausea
CPT/HCPCS: 36415; 74177-TC; 76705-TC; 80053; 81003; 83690; 84703; 85025; 85610; 85730; 86850; 86900; 86901; 87086; 96365; 96375; 99285-25

== ENCOUNTER 2023-05-23 12:32 | Emergency (ER) | payer OTHER ==
[2023-05-23 12:50] VITALS: BP 111/62; PULSE 76; RESP 18; TEMP 97.6; BMI 30.9
[2023-05-23] MEDS ORDERED: FAMOTIDINE 20 MG/50 ML IVPB 20 MG/50 ML MG IVPB ONE ×2 (13:24→14:11)
[2023-05-23] MEDS ORDERED: MAG HYDROX/AL HYDROX/SIMETH 30 ML UNIT-DOSE CUP PO ONE (13:24)
[2023-05-23] MEDS ORDERED: SODIUM CHLORIDE 0.9% 500 ML INFUS.BAG IV ONE (13:24)
[2023-05-23] MEDS ORDERED: ONDANSETRON 4 MG/2 ML VIAL IVPUSH ONE (13:34)
[2023-05-23] MEDS ORDERED: ONDANSETRON 4 MG/2 ML VIAL ONE (14:11)
[2023-05-23] MEDS ORDERED: MAG HYDROX/AL HYDROX/SIMETH 30 ML UNIT-DOSE CUP ONE (14:11)
[2023-05-23 14:37] LABS: HCG,QUALITATIVE URINE Negative
[2023-05-23 14:38] LABS: BASO % 0.7 % (0-2.0); EOS % 0.6 % (0-4.5); HEMOGLOBIN 14.4 GM/dL (10.7-15.3); LYMPH % 26.4 % (8-40); MCH 27.9 pg (25.7-33.7); MCHC 32.7 g/dl (32.0-36.0); MEAN CELL VOLUME 85.6 fl (80-96); MONO % 5.6 % (3.8-10.2); NEUT % 66.7 % (42.8-82.8); PLATELET COUNT 315 10^3/uL (134-434); RBC 5.14 M/mm3 (3.60-5.2); RDW 17.6 % (11.6-15.6); WHITE BLOOD COUNT 7.4 K/mm3 (4.0-10.0)
[2023-05-23 14:39] LABS: EPI CELLS 8 /uL (0-25.1); HYALINE CASTS 0 /uL (0-3.1); PH,URINE 5.5 (5.0-8.0); URINE APPEARANCE CLEAR; URINE BACTERIA 42 /uL (0-1359); URINE BILIRUBIN NEGATIVE (NEGATIVE); URINE COLOR YELLOW; URINE GLUCOSE (UA) NEGATIVE (NEGATIVE); URINE KETONE NEGATIVE (NEGATIVE); URINE LEUK ESTERASE 1+ (NEGATIVE); URINE NITRITE NEGATIVE (NEGATIVE); URINE PROTEIN NEGATIVE (NEGATIVE); URINE RBC 4788 /uL (0-23.9); URINE UROBILINOGEN 0.2 mg/dL (0.2-1.0); URINE WBC 58 /uL (0-25.8)
[2023-05-23 15:09] LABS: POTASSIUM 4.2 mmol/L (3.5-5.1)
[2023-05-23 15:11] LABS: CALCIUM 8.9 mg/dL (8.5-10.1)
[2023-05-23] MEDS ORDERED: ACETAMINOPHEN 1000 MG/100 ML BAG IVPB ONE (15:11)
[2023-05-23 15:12] LABS: ALBUMIN 3.6 g/dl (3.4-5.0); BLOOD UREA NITROGEN 10.9 mg/dL (7-18); MAGNESIUM 2.1 mg/dL (1.8-2.4)
[2023-05-23 15:15] LABS: CREATININE 0.7 mg/dL (0.55-1.3); PHOSPHOROUS 3.8 mg/dL (2.5-4.9)
[2023-05-23 15:16] LABS: BILIRUBIN,TOTAL 0.5 mg/dL (0.2-1)
[2023-05-23 15:17] LABS: TOT PROT 7.1 g/dl (6.4-8.2)
[2023-05-23] MEDS ORDERED: ACETAMINOPHEN INJECTION 100 ML IVPB ONE (15:29)
== END 2023-05-23 16:04 | disposition home or self-care (01) ==
LOC: JER 12:32
PROC: 3E033GC Introduction of Other Therapeutic Substance into Peripheral Vein, Percutaneous Approach (ICD-10-PCS; principal; 2023-05-23)
PROC: 3E033GC Introduction of Other Therapeutic Substance into Peripheral Vein, Percutaneous Approach (ICD-10-PCS; 2023-05-23)
PROC: 3E033NZ Introduction of Analgesics, Hypnotics, Sedatives into Peripheral Vein, Percutaneous Approach (ICD-10-PCS; 2023-05-23)
DX: R10.13 Epigastric pain (principal); R11.10 Vomiting, unspecified; R19.7 Diarrhea, unspecified; Z20.822 Contact with and (suspected) exposure to COVID-19
CPT/HCPCS: 0241U-QW; 36415; 80053; 81003; 83735; 84100; 84703; 85025; 99284-25

== ENCOUNTER → 2023-10-01 | Day surgery (SDC) | payer OTHER | END | disposition home or self-care (01) | LOC: JRADIR 08:20 | PROC: BU18YZZ Fluoroscopy of Uterus and Fallopian Tubes using Other Contrast (ICD-10-PCS; principal; 2023-10-01) | DX: N97.9 Female infertility, unspecified (principal) | CPT/HCPCS: 58340; 74740-TC-FY; 76000-TC-FY; 84703 ==

== ENCOUNTER 2023-10-28 08:13 | Emergency (ER) | payer OTHER ==
[2023-10-28 08:25] VITALS: BP 117/67; PULSE 91; RESP 18; TEMP 98; BMI 33.3
[2023-10-28] MEDS ORDERED: FAMOTIDINE 20 MG/50 ML IVPB 20 MG/50 ML MG IVPB ONE (09:33)
[2023-10-28] MEDS ORDERED: ACETAMINOPHEN INJECTION 100 ML IVPB ONE (09:33)
[2023-10-28] MEDS: ACETAMINOPHEN 1000 MG/100 ML BAG IVPB ONE (09:37)
[2023-10-28] MEDS: FAMOTIDINE 20 MG/50 ML IVPB 20 MG/50 ML MG IVPB ONE (09:38)
[2023-10-28 09:43] LABS: BASO % 0.6 % (0-2.0); EOS % 4.1 % (0-4.5); HEMATOCRIT 41.3 % (32.4-45.2); HEMOGLOBIN 13.7 GM/dL (10.7-15.3); LYMPH % 10.2 % (8-40); MCH 28.5 pg (25.7-33.7); MCHC 33.2 g/dl (32.0-36.0); MEAN CELL VOLUME 85.6 fl (80-96); MEAN PLT VOLUME 8.1 fl (7.5-11.1); MONO % 4.6 % (3.8-10.2); NEUT % 80.5 % (42.8-82.8); PLATELET COUNT 323 10^3/uL (134-434); RBC 4.82 M/mm3 (3.60-5.2); RDW 14.4 % (11.6-15.6); WHITE BLOOD COUNT 13.8 K/mm3 (4.0-10.0)
[2023-10-28 09:48] LABS: INR 1.09 (0.83-1.09); PROTHROMBIN TIME (PATIENT) 12.5 SEC (9.7-13.0)
[2023-10-28 09:51] LABS: ACTIVATED PTT 36.3 SECONDS (25.2-36.5)
[2023-10-28 10:03] LABS: POTASSIUM 4.2 mmol/L (3.5-5.1)
[2023-10-28 10:05] LABS: BLOOD UREA NITROGEN 10.4 mg/dL (7-18)
[2023-10-28 10:06] LABS: ALBUMIN 3.5 g/dl (3.4-5.0)
[2023-10-28 10:09] LABS: CREATININE 0.7 mg/dL (0.55-1.3)
[2023-10-28 10:10] LABS: BILIRUBIN,TOTAL 0.9 mg/dL (0.2-1); TOT PROT 6.8 g/dl (6.4-8.2)
== END 2023-10-28 14:45 | disposition home or self-care (01) ==
LOC: JER 08:13
PROC: 3E033GC Introduction of Other Therapeutic Substance into Peripheral Vein, Percutaneous Approach (ICD-10-PCS; principal; 2023-10-28)
PROC: 3E033NZ Introduction of Analgesics, Hypnotics, Sedatives into Peripheral Vein, Percutaneous Approach (ICD-10-PCS; 2023-10-28)
DX: K59.00 Constipation, unspecified (principal); R10.12 Left upper quadrant pain
CPT/HCPCS: 36415; 74177-TC; 80053; 83605; 83690; 84703; 85025; 85610; 85730; 86850; 86900; 86901; 99285-25; J0131; Q9967

== ENCOUNTER 2023-11-04 02:03 | Emergency (ER) | payer OTHER ==
[2023-11-04 02:11] VITALS: BP 96/60; PULSE 87; RESP 20; TEMP 98.2; BMI 33.5
[2023-11-04] MEDS ORDERED: MAG HYDROX/AL HYDROX/SIMETH 30 ML UNIT-DOSE CUP ONE (02:55)
[2023-11-04] MEDS ORDERED: ACETAMINOPHEN INJECTION 100 ML IVPB ONE (02:59)
[2023-11-04] MEDS: MAG HYDROX/AL HYDROX/SIMETH 30 ML UNIT-DOSE CUP PO ONE (02:59)
[2023-11-04] MEDS: LIDOCAINE VISCOUS 2% ORAL/TOP 15 ML UNIT-DOSE CUP MM ONE (03:02)
[2023-11-04] MEDS: ACETAMINOPHEN 1000 MG/100 ML BAG IVPB ONE (03:03)
[2023-11-04] MEDS ORDERED: ONDANSETRON 4 MG/2 ML VIAL ONE (03:03)
[2023-11-04] MEDS ORDERED: FAMOTIDINE 20 MG/50 ML IVPB 20 MG/50 ML MG IVPB ONE (03:04)
[2023-11-04] MEDS: ONDANSETRON 4 MG/2 ML VIAL IVPUSH ONE (03:27)
[2023-11-04] MEDS: FAMOTIDINE 20 MG/50 ML IVPB 20 MG/50 ML MG IVPB ONE (03:27)
[2023-11-04] MEDS: SODIUM CHLORIDE 0.9% 500 ML INFUS.BAG IV ONE (03:40)
[2023-11-04] MEDS ORDERED: SUCRALFATE 1 GM TABLET (FP) ONE (03:55)
[2023-11-04] MEDS: SUCRALFATE 1 GM/10 ML UNIT DOSE CUPS PO ONE (03:57)
== END 2023-11-04 04:59 | disposition home or self-care (01) ==
LOC: JER 02:03
PROC: 3E033GC Introduction of Other Therapeutic Substance into Peripheral Vein, Percutaneous Approach (ICD-10-PCS; principal; 2023-11-04)
PROC: 3E033GC Introduction of Other Therapeutic Substance into Peripheral Vein, Percutaneous Approach (ICD-10-PCS; 2023-11-04)
PROC: 3E033NZ Introduction of Analgesics, Hypnotics, Sedatives into Peripheral Vein, Percutaneous Approach (ICD-10-PCS; 2023-11-04)
DX: K21.9 Gastro-esophageal reflux disease without esophagitis (principal); R10.13 Epigastric pain; K59.00 Constipation, unspecified; R11.0 Nausea
CPT/HCPCS: 99284-25; J0131